=== PATIENT | female | born 1955 | race Caucasian/White ===

== ENCOUNTER 2019-12-20 10:59 | Outpatient (RCR) | payer OTHER, SELFPAY ==
[2019-12-20 11:15] VITALS: PULSE 77
[2019-12-20 11:30] VITALS: BP 143/79; PULSE 77; RESP 16; O2SAT 98; BMI 34.6
== END 2020-03-19 23:59 | disposition home or self-care (01) ==
DX: Z98.61 Coronary angioplasty status (principal)
CPT/HCPCS: 93798

== ENCOUNTER 2020-03-26 09:25 | Outpatient (RCR) | payer OTHER, SELFPAY ==
[2020-03-20 00:02] VITALS: BP 143/79; PULSE 77; RESP 16; O2SAT 98; BMI 34.6
== END 2020-04-11 15:12 | disposition home or self-care (01) ==
DX: Z98.61 Coronary angioplasty status (principal)
CPT/HCPCS: 93798

== ENCOUNTER 2021-04-02 22:52 | Emergency (ER) | payer OTHER, SELFPAY ==
[2021-04-02 23:05] VITALS: BP 152/78; PULSE 86; RESP 18; TEMP 36.8; O2SAT 97
--- NOTE | 2021-04-02 23:50 | ED.WOUNDLAC ---
HPI - Wound/Laceration General Chief Complaint: Wound/Laceration Stated Complaint: stepped on nail Time Seen by Provider: 04/02/21 22:55 Source: patient and RN notes reviewed Mode of arrival: ambulatory Limitations: no limitations History of Present Illness HPI narrative: pt stepped on a nail Onset (ago): hour(s) (6) Extremity Location: Right: foot Place: home Patient tetanus UTD: Yes (please see nurses notes.) Context: accidental Associated symptoms: none Treatments prior to arrival: other (none) Related Data Home Medications Medication Instructions Recorded Confirmed albuterol sulfate 90 mcg INHALATION DIRECTED 04/02/21 04/02/21 azelastine 2 spray INTRANASAL BID 04/02/21 04/02/21 cetirizine 10 mg PO DAILY 04/02/21 04/02/21 clopidogrel 75 mg PO DAILY 04/02/21 04/02/21 ezetimibe 10 mg PO DAILY 04/02/21 04/02/21 fenofibrate nanocrystallized 145 mg PO DAILY 04/02/21 04/02/21 fluticasone propionate [Flovent 2 puff INHALATION DAILY 04/02/21 04/02/21 HFA] gabapentin 300 mg PO TID 04/02/21 04/02/21 glimepiride 2 mg PO DAILY 04/02/21 04/02/21 insulin glargine [Lantus Solostar 50 unit SUBCUT DIRECTED 04/02/21 04/02/21 U-100 Insulin] insulin lispro [Humalog KwikPen 6 unit SUBCUT DIRECTED 04/02/21 04/02/21 Insulin] isosorbide mononitrate 30 mg PO DAILY 04/02/21 04/02/21 lisinopril 10 mg PO DAILY 04/02/21 04/02/21 metformin 500 mg PO DAILY 04/02/21 04/02/21 metoprolol succinate 25 mg PO DAILY 04/02/21 04/02/21 nitroglycerin 0.4 mg SUBLINGUAL DIRECTED 04/02/21 04/02/21 omeprazole 20 mg PO BID 04/02/21 04/02/21 pen needle, diabetic [BD Jacquelin 2nd 04/02/21 04/02/21 Gen Pen Needle] pravastatin 40 mg PO DAILY 04/02/21 04/02/21 Allergies Allergy/AdvReac Type Severity Reaction Status Date / Time erythromycin base Allergy Unknown Vomiting Verified 04/02/21 23:24 pseudoephedrine Allergy Unknown Itching Verified 04/02/21 23:24 iohexol Allergy Itching Verified 04/02/21 23:24 [From contrast - CT, X-RAY] ibuprofen AdvReac Unknown Ulcers Verified 04/02/21 23:24 Contrast Media Allergy Mild PALPATATION Uncoded 06/08/15 11:58 S/SOB/LEE Review of Systems Review of Systems: All systems reviewed & are unremarkable except as noted in HPI and below PMFSH Past Medical History Medical History Puncture wound of skin from metal nail Family History Family History Mother Patient's mother is in good health Sibling Patient's brother is in good health Hypertension Father Hypertension, Onset Age: 67 Family history of coronary artery disease, Onset Age: 67 Family history of malignant neoplasm of esophagus Patient's father is Social History Social History Smoking status: Former smoker Smoking end date: 04/13/86 Alcohol intake: current Substance use: never Gender identity (if verbalized by the patient): Female Sexual Orientation (if Verbalized by the Patient): Straight or Heterosexual Spiritual care concerns: No Exam Const: General: healthy appearing, no acute distress and alert Limitations: no limitations HENMT: Head: normal to inspection Ears: external ears normal and TM's normal bilaterally General nose exam: Normal external nose present and Normal nares present Mouth: Yes lip normal and Yes moist mucous membranes Teeth and gingiva: dentition normal Eyes: Conjunctivae: conjunctivae normal Pupils: Equal, round and reactive pupils present EOM: EOMs intact bilaterally Neck: Neck: normal visual inspection Chest: Chest palpation & inspection: normal inspection of the chest Resp: Effort & Inspection: normal respiratory effort Auscultation: clear to auscultation bilaterally Cardio: Rate: regular rate Rhythm: regular rhythm GI: GI Palp: Yes Soft to palpation and No Tenderness to palpation present
[2021-04-03] MEDS: TETANUS,DIPHTHERIA,AC PERTUSSIS ADULT 0.5 ML (ADACEL) IM (00:06)
[2021-04-03] MEDS: cefTRIAXone 1 GM VIAL IM (00:09)
[2021-04-03] MEDS: KETOROLAC (*BKC) 60 MG/2 ML VIAL IM (00:16)
[2021-04-03] MEDS: LIDOCAINE HCL 1% LOCAL INJ 20 ML VIAL (00:23)
[2021-04-03 00:40] VITALS: BP 153/75; PULSE 78; RESP 18; TEMP 36.7; O2SAT 96
== END 2021-04-03 00:48 | disposition home or self-care (01) ==
PROVIDERS: Emergency Provider Emergency Medicine
DX: S91.331A Puncture wound without foreign body, right foot, initial encounter (principal); W45.0XXA Nail entering through skin, initial encounter
CPT/HCPCS: 90471; 90715; 96372; 99283; 99284; J0696; J1885